=== PATIENT | female | born 1965 | race Caucasian/White ===

== ENCOUNTER → 2019-04-29 13:41 | Outpatient (CLI) | payer BC, SELFPAY ==
[2019-05-03 13:07] LABS: HPV Reflexed? NOT INDICATED
== END ==
PROVIDERS: Visit Provider Obstetrics & Gynecology
DX: Z12.4 Encounter for screening for malignant neoplasm of cervix (principal)
CPT/HCPCS: 87624; 88175; G0145

== ENCOUNTER → 2019-05-20 10:23 | Outpatient (CLI) | payer BC, SELFPAY ==
--- NOTE | 2019-05-20 10:27 | BI_ITS ---
MAMMOGRAPHY - BILATERAL SCREENING 3-D TOMOSYNTHESIS REASON FOR EXAM: Female, 54 years old. Bilateral Screening 3-D tomosynthesis PERTINENT HISTORY: No significant family history. TECHNIQUE: 2-D mammograms and 3-D Tomosynthesis of the breast (s) were performed. CAD was performed. COMPARISON: March 06, 2017, February 02, 2016, January 05, 2015 FINDINGS: The breast composition is almost entirely fat. Scattered benign calcifications are seen. No dense spiculated masses or suspicious microcalcifications are identified. No architectural distortion is identified. There is no skin thickening or retraction. There has been no significant change since the prior study. BI/SCREEN MAMM (CAD) W/BRITTNI BILAT IMPRESSION: No mammographic signs of malignancy. Routine yearly mammograms recommended. ASSESSMENT CATEGORY: BIRADS Category 2: Benign. A letter regarding these results will be sent to the patient by the facility within 30 days. FOLLOW UP RECOMMENDATION: Yearly follow up mammogram recommended. (A) Approximately 10% of breast cancers are not detected by mammography. A normal mammogram should not delay biopsy of a clinically suspicious abnormality. Electronically Signed: Vitor Felix MD at 12:09 EDT , Service support ,
== END ==
PROVIDERS: Referring Provider Obstetrics & Gynecology; Visit Provider Obstetrics & Gynecology
DX: Z12.31 Encounter for screening mammogram for malignant neoplasm of breast (principal)
CPT/HCPCS: 77063; 77067

== ENCOUNTER 2022-02-28 14:20 | Emergency (ER) | payer OTHER, SELFPAY ==
[2022-02-28 14:21] VITALS: BP 127/67; PULSE 68; RESP 16; TEMP 36.6; O2SAT 99; BMI 28.3
--- NOTE | 2022-02-28 14:33 | EX.ED.DYSGE1 ---
HPI History of Present Illness Chief Complaint: Dizziness Narrative Narrative: 56-year-old female presenting with vertiginous dizziness which is off and on for the last couple of days. She states she went to the urgent care today and was told to come to the emergency room. Patient denies any headache but she does have associated nausea when she feels like she is spinning. No history of head trauma. Patient denies significant medical history. No chest pain or shortness of breath. She is eating and drinking normally. She is making normal urine and stool. No fevers or neck pain. Denies ear pain. PFSH PFS Medical History Sleep apnea Home Medications meclizine 25 mg PO DAILY PRN #30 tab 02/28/22 [Rx Last Taken Unknown] Allergy/AdvReac Type Severity Reaction Status Date / Time No Known Allergies Allergy Verified 02/28/22 14:22 Social History Smoking Status: Current every day smoker tobacco type: cigarettes ROS ROS ED Constitutional Constitutional ED: Denies chills or fever(s) Eyes Eyes: Reports other Details: Vertiginous dizziness ENT ENT ED: Denies rhinorrhea or sore throat Cardiovascular Cardiovascular: Denies chest pain or palpitations Respiratory/Chest Respiratory/Chest: Denies cough or dyspnea Gastrointestinal Gastrointestinal: Reports nausea; Denies abdominal pain, diarrhea or vomiting Genitourinary Genitourinary ED: Denies dysuria Musculoskeletal Musculoskeletal: Denies arthralgias, back pain, myalgias or neck pain Integumentary Denies abscess, Abrasions or rash Neurologic Neurologic: Denies headache(s), paresthesias or weakness EXAM Physical Exam Const Vital Signs: 02/28/22 14:21 02/28/22 14:29 Temperature 97.8 F Temperature Source Temporal Pulse Rate 68 Respiratory Rate 16 Respiratory Effort Normal Respiratory Pattern Normal Blood Pressure 127/67 H Blood Pressure Mean 87 Pulse Ox 99 Oxygen Delivery Method Room Air Positive well nourished General Appearance ED: NAD HEENT Reports moist mucous membranes Negative for trauma Eyes PERRL and EOMs intact bilaterally Eyes Narrative: Nystagmus noticed with [place]. Patient reports vertiginous dizziness with exam. Resp normal respiratory effort Cardio regular rate and regular rhythm Extremity normal to inspection General Extremety ED: Negative for edema General Extremity: Negative for edema Neuro oriented x3, CN's II-XII intact bilaterally and no sensory deficits noted Sensorium / Orientation: alert Motor Exam: strength 5/5 throughout Psych mental status grossly normal Skin no rashes or lesions noted MDM MDM MDM Narrative Medical decision making narrative: Patient presenting with vertiginous dizziness. On [place] exam she does have nystagmus and her dizziness is reproducible and reported as spinning. Patient given meclizine 25 mg p.o., and Phenergan 12.5 mg IM. We will reevaluate her to see if her sweating is resolved. Reevaluation at 1545 patient is symptom-free. I believe her symptoms are consistent with benign positional vertigo. She is given meclizine for home. She is to follow-up with her PCP outpatient. She is given return precautions. Impression: 1. Positional vertigo Discharge Plan Triage Chief Complaint: Dizziness ED Provider: Seth Romero Dx/Rx/DC Orders Instructions: ED BPV Vertigo Prescriptions: New meclizine 25 mg tablet 25 mg PO DAILY PRN (Reason: dizziness) Qty: 30 RF: 0 Primary Care Provider: Noreen Mathew Referrals: Noreen Mathew MD [Primary Care Provider] - Disposition Disposition: Home, Self Care
[2022-02-28] MEDS: proMETHazine 25 MG/ML Syringe 12.5 MG IM (14:44)
[2022-02-28] MEDS: Meclizine HCl 25 MG Tablet PO (14:46)
[2022-02-28 15:59] VITALS: BP 148/67; PULSE 71; RESP 16; O2SAT 98
== END 2022-02-28 16:00 | disposition home or self-care (01) ==
PROVIDERS: Emergency Provider Student in an Organized Health Care Education/Training Program; PCP Family Medicine; Visit Provider Student in an Organized Health Care Education/Training Program
DX: R42 Dizziness and giddiness (principal); R11.0 Nausea; G47.30 Sleep apnea, unspecified; F17.210 Nicotine dependence, cigarettes, uncomplicated
CPT/HCPCS: 96372; 99282

== ENCOUNTER → 2023-03-20 | Outpatient (CLI) | payer BC, SELFPAY ==
[2023-03-26 14:09] LABS: HPV APTIMA, High Risk Negative (Negative)
== END | disposition home or self-care (01) ==
LOC: LABSPEC 11:23
PROVIDERS: PCP Family Medicine; Visit Provider Nurse Practitioner Women's Health
DX: Z12.4 Encounter for screening for malignant neoplasm of cervix (principal)
CPT/HCPCS: 87624; 88175; G0145

== ENCOUNTER → 2023-03-25 | Outpatient (CLI) | payer BC, SELFPAY ==
--- NOTE | 2023-03-25 09:58 | BI_ITS ---
MAMMOGRAPHY - BILATERAL SCREENING REASON FOR EXAM: Female, 58 years old. Routine annual screening examination. PERTINENT HISTORY: Non-contributory. TECHNIQUE: Digital bilateral breast brittni (3D mammographic acquisition) in the CC and MLO projections. 2-D mediolateral oblique (MLO) and craniocaudad (CC) views of both breasts were obtained. CAD: Full Field Digital Mammography with Computer Added Detection was performed. COMPARISON: Comparison is made with prior study May 20, 2019 and March 06, 2017. FINDINGS: Breast Composition: The breasts are almost entirely fatty. There are no dominant masses or suspicious calcifications. No other significant abnormalities are identified. There has been no significant change since the prior study. BI/SCRN MAMM (CAD)W/BRITTNI BILAT IMPRESSION: Stable bilateral screening mammogram. Yearly follow-up mammogram recommended. (A) ASSESSMENT CATEGORY: BIRADS Category 1: Negative. A letter regarding these results will be sent to the patient by the facility within 30 days. Approximately 10% of breast cancers are not detected by mammography. A normal mammogram should not delay biopsy of a clinically suspicious abnormality. [id number] Electronically Signed: Juve Shultz MD at 12:21 EDT ,
== END | disposition home or self-care (01) ==
LOC: OPBI 09:56
PROVIDERS: PCP Family Medicine; Referring Provider Nurse Practitioner Women's Health; Visit Provider Nurse Practitioner Women's Health
DX: Z12.31 Encounter for screening mammogram for malignant neoplasm of breast (principal)
CPT/HCPCS: 77063; 77067

== ENCOUNTER → 2023-03-29 | Outpatient (CLI) | payer BC, SELFPAY ==
--- NOTE | 2023-03-29 10:50 | RAD_ITS ---
STUDY: X-RAY CHEST REASON FOR EXAM: Female, 58 years old. MALIGNANT MELANOMA OF L HAND TECHNIQUE: PA and lateral COMPARISON: None. FINDINGS: There is nonspecific bilateral infrahilar interstitial thickening in both lower lobes.. There is no demonstrated pleural abnormality. Normal size heart. Normal mediastinum and lee. Normal visualized pulmonary arteries. Normal visualized aortic arch and descending thoracic aorta. Normal visualized thoracic spine. Normal visualized ribs, clavicles, and shoulders. There is no demonstrated abnormality of the visualized soft tissue structures of the upper abdomen. RAD/Chest PA and Lateral IMPRESSION: Nonspecific bilateral infrahilar interstitial thickening of both lower lobes. No gross infiltration or pulmonary nodule. Electronically Signed: Prasad Pack MD at 21:51 EDT ,
[2023-03-29 10:53] LABS: Absolute Lymphocyte Count 1.59 X10^3/uL (0.83-4.51); Absolute Neutrophil Count 5.1 X10^3/uL (2.0-7.7); Basophil# 0.05 X10^3/uL; Basophil% 0.7 % (0-1); Eosinophils% 1.3 % (0-5); Hematocrit 42.5 % (37-47); Hemoglobin 14.2 g/dL (12.0-15.0); Lymphocyte # 1.59 X10^3/ul (0.83-4.51); Lymphocyte % 21.4 % (19-41); Mean Corp Hgb Conc 33.4 g/dL (32-36); Mean Corpuscular Hgb 29.5 pg (27.0-32.0); Mean Corpuscular Volume 88.4 fL (81-99); Mean Platelet Vol. 8.6 fl (6.2-12.0); Monocyte# 0.58 X10^3/uL; Monocyte% 7.8 % (0-10); NRBC Flagged by Analyzer 0 % (0-5); Neutrophil % 68.5 % (47-70); Platelet Count 321 K/mm3 (150-450); RBC Distribution Width CV 13.6 % (11.6-14.6); RBC Distribution Width SD 44.2 fl (35.1-43.9); Red Blood Count 4.81 M/mm3 (4.2-5.4); White Blood Count 7.4 K/mm3 (4.4-11.0)
[2023-03-29 11:42] LABS: ALB/GLOB Ratio 0.9 RATIO (0.9-2.4); AST(SGOT) 10 U/L (15-37); Alanine Aminotransfer ALT/SGPT 19 U/L (13-56); Albumin, Serum 3.2 g/dL (3.2-5.0); Alkaline Phosphatase 114 U/L (45-117); Anion Gap 6 (5-15); BUN 16 mg/dL (7-18); BUN/Creat Ratio 25.9 RATIO (10-20); Bilirubin, Direct 0.11 mg/dL (0.00-0.30); Calcium,Total 8.7 mg/dL (8.5-10.1); Chloride 111 mmol/L (98-107); Creatinine, Serum 0.62 mg/dL (0.55-1.02); EST Glomerular Filtration Rate 106 mL/min (>60); Est Glom Filt Rate - Afr Amer 129 mL/min (>60); Globulin 3.5 g/dL (2.2-4.2); Glucose 106 mg/dL (74-106); LDH 168 U/L (84-246); Potassium 3.9 mmol/L (3.5-5.1); Protein, Total 6.7 g/dL (6.4-8.2); Sodium Level 141 mmol/L (136-145)
== END | disposition home or self-care (01) ==
LOC: LAB 10:36
PROVIDERS: PCP Family Medicine; Referring Provider Orthopaedic Surgery Hand Surgery; Visit Provider Orthopaedic Surgery Hand Surgery
DX: C43.62 Malignant melanoma of left upper limb, including shoulder (principal)
CPT/HCPCS: 36415; 71046; 80053; 82248; 83615; 85025

== ENCOUNTER → 2023-06-21 | Outpatient (CLI) | payer BC, SELFPAY ==
[2023-06-21 12:37] LABS: Absolute Lymphocyte Count 1.56 X10^3/uL (0.83-4.51); Absolute Neutrophil Count 5.4 X10^3/uL (2.0-7.7); Basophil# 0.06 X10^3/uL; Basophil% 0.8 % (0-1); Eosinophil# 0.06 X10^3/uL; Eosinophils% 0.8 % (0-5); Hematocrit 43.3 % (37-47); Hemoglobin 14.2 g/dL (12.0-15.0); Lymphocyte # 1.56 X10^3/ul (0.83-4.51); Lymphocyte % 20.1 % (19-41); Mean Corp Hgb Conc 32.8 g/dL (32-36); Mean Corpuscular Hgb 29.3 pg (27.0-32.0); Mean Corpuscular Volume 89.3 fL (81-99); Mean Platelet Vol. 8.7 fl (6.2-12.0); Monocyte# 0.63 X10^3/uL; Monocyte% 8.1 % (0-10); NRBC Flagged by Analyzer 0 % (0-5); Neutrophil # 5.42 X10^3/uL (2.7-7.7); Neutrophil % 69.8 % (47-70); Platelet Count 341 K/mm3 (150-450); RBC Distribution Width CV 14.1 % (11.6-14.6); RBC Distribution Width SD 45.9 fl (35.1-43.9); Red Blood Count 4.85 M/mm3 (4.2-5.4); White Blood Count 7.8 K/mm3 (4.4-11.0)
[2023-06-21 13:31] LABS: ALB/GLOB Ratio 0.9 RATIO (0.9-2.4); AST(SGOT) 12 U/L (15-37); Alanine Aminotransfer ALT/SGPT 20 U/L (13-56); Albumin, Serum 3.4 g/dL (3.2-5.0); Alkaline Phosphatase 113 U/L (45-117); Anion Gap 6 (5-15); BUN 12 mg/dL (7-18); BUN/Creat Ratio 19.6 RATIO (10-20); Calcium,Total 8.7 mg/dL (8.5-10.1); Chloride 109 mmol/L (98-107); Creatinine, Serum 0.61 mg/dL (0.55-1.02); EST Glomerular Filtration Rate 107 mL/min (>60); Est Glom Filt Rate - Afr Amer 130 mL/min (>60); Globulin 3.7 g/dL (2.2-4.2); Glucose 101 mg/dL (74-106); Protein, Total 7.1 g/dL (6.4-8.2); Sodium Level 138 mmol/L (136-145); T4 Free Direct 1.05 ng/dL (0.76-1.46); Thyroid Stim Hormone (TSH) 1.16 uIU/mL (0.358-3.74)
== END | disposition home or self-care (01) ==
LOC: LAB 12:02
PROVIDERS: PCP Family Medicine; Referring Provider Specialist; Visit Provider Specialist
DX: C43.9 Malignant melanoma of skin, unspecified (principal)
CPT/HCPCS: 36415; 80053; 82533; 84439; 84443; 85025

== ENCOUNTER 2024-05-14 11:00 | Emergency (ER) | payer BC, SELFPAY ==
[2024-05-14 11:01] VITALS: BP 120/70; PULSE 91; RESP 16; TEMP 36.2; O2SAT 97; BMI 26.4
--- NOTE | 2024-05-14 11:17 | EX.ED.DYSGE1 ---
HPI <VASQUEZ Corrigan - Last Filed: 05/14/24 13:23> History of Present Illness Chief Complaint: Other, Pain/Inj Narrative Narrative: Patient is a 59-year-old female with history of skin cancer who presents to the emergency department for left breast swelling. Patient had enlarged lymph node to the left breast, she had an ultrasound needle biopsy done by Dr. Mccarthy 2 days ago. The patient presents with ecchymosis, swelling to the left axilla. She called the office, they were concerned for hematoma and they referred her to the emergency department. Patient denies any fever or chills, there is no evidence of any cellulitis. PFSH <VASQUEZ Corrigan - Last Filed: 05/14/24 13:23> [facility] Medical History Sleep apnea Home Medications ?Medication ?Instructions ?Recorded ?Last Taken ?Type meclizine 25 mg tablet 25 mg PO DAILY PRN dizziness #30 02/28/22 Unknown Rx tabs Allergy/AdvReac Type Severity Reaction Status Date / Time No Known Allergies Allergy Verified 05/14/24 11:06 Social History Smoking Status: Current every day smoker tobacco type: cigarettes ROS <VASQUEZ Corrigan - Last Filed: 05/14/24 13:23> ROS ED ROS Narrative Constitutional: Negative for fever, chills, weight loss, weakness Eyes: Negative for vision loss, vision change, double vision ENT: Negative for any sore throat, ear pain, congestion Cardiovascular: Negative for any chest pain, tightness, palpitations Respiratory: Negative for any cough, sputum production, hemoptysis, dyspnea, dyspnea on exertion, orthopnea Gastrointestinal: Negative for any abdominal pain, nausea, vomiting, diarrhea, constipation, blood in stool, blood in vomit : Negative for any urinary frequency, dysuria, retention, blood in urine Muscle skeletal: Negative for any neck pain, back pain Neurological: Negative for any headache, syncope, dizziness Skin: Negative for any rashes, itching, abrasions, lacerations. Positive for left axilla swelling, ecchymosis Psychiatric: Negative for any depression, anxiety, stress, suicidal ideation, homicidal ideation Hematologic: Negative for any excessive bruising, easy bleeding EXAM <VASQUEZ Corrigan - Last Filed: 05/14/24 13:23> Physical Exam Narrative Exam Narrative: Vital signs reviewed. HEET: Head normocephalic atraumatic, TMs clear bilaterally. Posterior pharynx is clear, moist mucous membranes. Nares clear bilaterally. Neck: Supple with no lymphadenopathy or tenderness. No signs of meningismus. Cardiac: Regular rate and rhythm no murmurs gallops or rubs, equal peripheral pulses bilaterally. Respiratory: Lungs clear to auscultation bilaterally. No chest tenderness. Abdomen: Soft, nontender, nondistended. No abdominal bruit or pulsatile masses. No hepatosplenomegaly Extremities: No peripheral edema, no signs of gross trauma or deformity. Active full range of motion of all extremities. Patient to the left axilla does have some ecchymosis, some edema. Some tender to palpation. There is no evidence of any erythema, drainage. There is no evidence of any infection. Neuro: Cranial nerves II through XII intact, no focal neurological deficits. Skin: Clean dry and intact with no rash, purpura, petechiae, vesicles or pustules. Backs/flank: No CVA tenderness, no midline spinal tenderness, no deformity. Psych: Normal mood and affect. No SI, HI or acute psychosis. Const Vital Signs: 05/14/24 11:01 05/14/24 11:33 05/14/24 13:35 Temperature 97.1 F L 97.1 F L Temperature Source Temporal Pulse Rate 91 72 Respiratory Rate 16 14 Respiratory Effort Normal Non-Labored Respiratory Pattern Normal Blood Pressure 120/70 118/71 Blood Pressure Mean 86 86 Pulse Ox 97 93 Oxygen Delivery Method Room Air <Dr. Contreras Lincoln MD - Last Filed: 05/14/24 21:46> Physical Exam Const Vital Signs: 05/14/24 11:01 05/14/24 11:33 05/14/24 13:35 Temperature 97.1 F L 97.1 F L Temperature Source Temporal Pulse Rate 91 72 Respiratory Rate 16 14 Respiratory Effort Normal Non-Labored Respiratory Pattern Normal Blood Pressure 120/70 118/71 Blood Pressure Mean 86 86 Pulse Ox 97 93 Oxygen Delivery Method Room Air MDM <VASQUEZ Corrigan - Last Filed: 05/14/24 13:23> MDM Radiography Diagnostic Testing: Clinical Impression(s) from Imaging Studies Breast Ultrasound 05/14/24 11:19 IMPRESSION: Findings suggestive of a post biopsy hematoma and soft tissue swelling. No drainable fluid collection is seen. ASSESSMENT CATEGORY: BIRADS Category 2: Benign. A letter regarding these results will be sent to the patient by the facility within 30 days. Electronically Signed: Juve Shultz MD at 12:48 EDT , Treatment and Re-Evaluation :: Differential diagnosis includes however is not limited to: Axilla hematoma, lymphadenopathy, postop bleeding, abscess formation, cellulitis Patient appears to be in no obvious distress vital signs are stable. Patient presents to the emergency department with ecchymosis, edema to the left axilla. There appears to be no signs or symptoms of infection. This does look to be postop swelling, there is some ecchymosis inferiorly. There is no drainage. I spoke with Dr. Ruiz, concerning for any hematoma, the patient received left breast ultrasound. All radiologic examinations were read, reviewed by the emergency department attending. From these reads, a plan of care will be put in place. Patient's ultrasound showed finding suggestive of postbiopsy hematoma, measuring about 1.2 cm x 1.5 cm x 0.8 cm, no other drainable abscess. Secondary to this finding, I did reach out to Dr. Mccarthy, she will see the patient in office this upcoming week, no emergent intervention needed. Instructed use warm compresses. I did offer the patient pain medicine however she refused. States she only takes Tylenol. Patient will receive a work note. She is instructed to return for any worsening symptoms, all questions answered, stable for discharge. <Dr. Contreras Lincoln MD - Last Filed: 05/14/24 21:46> [facility] Narrative Medical decision making narrative: I have personally performed a face to face assessment of the patient and have reviewed the [facility]NA[facility] Note. I performed a substantive portion of the visit including all aspects of the following. My montiel findings include: History is biopsy L breast 2-3 days ago, worsening swollen area at the site of the biopsy sent for further imaging/evaluation for possible hematoma. No fevers or chills or bleeding. Exam is tender swollen area left fourth quadrant breast, no overlying erythema or signs of infection, there is a lot of dependent ecchymosis which is nontender more caudally. Not fluctuant. Is fairly firm. Medical Decison Making will obtain ultrasound to further evaluate and discuss with the surgeon. Other additions or changes: [None] Radiography Diagnostic Testing: Clinical Impression(s) from Imaging Studies Breast Ultrasound 05/14/24 11:19 IMPRESSION: Findings suggestive of a post biopsy hematoma and soft tissue swelling. No drainable fluid collection is seen. ASSESSMENT CATEGORY: BIRADS Category 2: Benign. A letter regarding these results will be sent to the patient by the facility within 30 days. Electronically Signed: Juve Shultz MD at 12:48 EDT , I reviewed ultrasound images as well as the report which I agree with, consistent with a hematoma. Discharge Plan Triage Chief Complaint: Other, Pain/Inj ED Midlevel Provider: Clint Jarquin ED Provider: Contreras Lincoln Dx/Rx/DC Orders Clinical Impression: Postoperative hematoma Instructions: ED Hematoma Prescriptions: No Action meclizine 25 mg tablet 25 mg PO DAILY PRN (Reason: dizziness) Qty: 30 0RF Stand Alone Forms: ED Work / School Excuse Primary Care Provider: Noreen Mtahew Referrals: Noreen Mathew MD [Primary Care Provider] - Maricarmen Mccarthy MD [Med Staff - Active Staff] - Activity Restrictions/Additional Instructions: Continues warm compresses. Follow-up outpatient. Print Language: Argentine Disposition Disposition: Home, Self Care Discharge Date/Time: 05/14/24 13:36
--- NOTE | 2024-05-14 11:19 | US_ITS ---
STUDY: ULTRASOUND BREAST - LEFT REASON FOR EXAM: Female, 59 years old. Status post recent left axillary biopsy. Soft tissue swelling and pain. TECHNIQUE: Axial and longitudinal images of the LEFT breast were performed with a high resolution ultrasound transducer. # OF IMAGES: 30 COMPARISON: None. FINDINGS: LEFT Breast: The axillary region of the breast was examined with ultrasound. There is evidence of swelling and abdomen distally she was in the axillary region. Several small hypoechoic areas were seen. The largest measures 1.2 cm x 1.5 cm x 0.8 cm. This may represent postoperative hematoma. US/Breast Limited Unilateral IMPRESSION: Findings suggestive of a post biopsy hematoma and soft tissue swelling. No drainable fluid collection is seen. ASSESSMENT CATEGORY: BIRADS Category 2: Benign. A letter regarding these results will be sent to the patient by the facility within 30 days. Electronically Signed: Juve Shultz MD at 12:48 EDT ,
[2024-05-14 13:35] VITALS: BP 118/71; PULSE 72; RESP 14; TEMP 36.2; O2SAT 93
== END 2024-05-14 13:36 | disposition home or self-care (01) ==
PROVIDERS: Emergency Provider Emergency Medicine; PCP Family Medicine; Visit Provider Emergency Medicine
DX: L76.32 Postprocedural hematoma of skin and subcutaneous tissue following other procedure (principal); Y83.8 Other surgical procedures as the cause of abnormal reaction of the patient, or of later complication, without mention of misadventure at the time of the procedure; F17.210 Nicotine dependence, cigarettes, uncomplicated; Z79.899 Other long term (current) drug therapy; Z85.828 Personal history of other malignant neoplasm of skin; Z98.890 Other specified postprocedural states
CPT/HCPCS: 76642; 99282